=== PATIENT | female | born 1990 | race Caucasian/White ===

== ENCOUNTER 2019-10-28 03:00 | Inpatient (IN) | payer OTHER, SELFPAY ==
[2019-10-28] VITALS (77 sets, daily range): BP systolic 90–134; BP diastolic 52–87; PULSE 55–128; RESP 18; TEMP 36.3–37; O2SAT 94–100; BMI 37.5
[2019-10-28] MEDS: fentaNYL 100 MCG/2 ML Ampul 50 MCG IV (02:09)
[2019-10-28] MEDS: Lactated Ringers 500 ML 999 ML IV ×2 (03:15→03:55)
[2019-10-28 03:16] LABS: Absolute Lymphocyte Count 1.44 X10^3/uL (0.83-4.51); Absolute Neutrophil Count 9.7 X10^3/uL (2.0-7.7); Basophil# 0.03 X10^3/uL; Basophil% 0.3 % (0-1); Eosinophil# 0.05 X10^3/uL; Eosinophils% 0.4 % (0-5); Hematocrit 38.4 % (37-47); Hemoglobin 12.6 g/dL (12.0-15.0); Lymphocyte # 1.44 X10^3/ul (4.0); Lymphocyte % 12.2 % (19-41); Mean Corp Hgb Conc 32.8 g/dL (32-36); Mean Corpuscular Volume 91.4 fL (81-99); Mean Platelet Vol. 10.5 fl (6.2-12.0); Monocyte# 0.55 X10^3/uL; Monocyte% 4.7 % (0-10); NRBC Flagged by Analyzer 0 % (0-5); Neutrophil # 9.65 X10^3/uL (2.7-7.7); Neutrophil % 82.1 % (47-70); Platelet Count 171 K/mm3 (150-450); RBC Distribution Width CV 14.4 % (11.6-14.6); RBC Distribution Width SD 47.5 fl (35.1-43.9); White Blood Count 11.8 K/mm3 (4.4-11.0)
[2019-10-28] MEDS: Ondansetron 4 MG/2 ML Vial IV ×2 (03:29→11:22)
[2019-10-28] MEDS: fentaNYL-bupivacaine (epidural) 100 ML BAG EPIDURAL ×2 (04:26→09:41)
[2019-10-28] MEDS: Lactated Ringers 1,000 ML 50 ML IV (04:33)
--- NOTE | 2019-10-28 07:01 | PCM.HP.OB ---
- Problem List (1) 40 weeks gestation of Status: Acute (2) Obesity Status: Acute Qualifiers: Obesity classification: adult class 3 (BMI >= 40) (3) associated with use of clomiphene Status: Acute History Date of Admission: 10/28/19 Final DAMIAN: 10/25/19 Gestational age: 40 Weeks and 3 Days History of this : This is a 29 year-old, , at 40.4 weeks gestational age that presents in spontaneous labor. Allergies No Known Allergies Allergy (Verified 10/28/19 01:26) Home Medications: Home Medications Prenatabs FA 1 tab PO DAILY 10/28/19 Zofran Odt 1 tab PO BID PRN 10/28/19 Smoking Status: Never smoker Alcohol: None Number of Fetus(es): 1 NST - FHR Rate Baby A Baseline: 135 Variability:: Moderate Accelerations:: 15 x 15 Decelerations:: None NST Reactive:: Yes FHR Category:: Category I Uterine Activity:: Contractions palpate moderate and relaxed in between. TOCO not reading due to maternal size History Past Pregnancies: Past Pregnancies Delivery Date Name GA/ Weeks Outcome Route Wt Sex Labor Length Anesthesia Delivery Location Provider FOB Expected Infant Delivery Method: Spontaneous Vaginal Review of Systems Constitutional: Denies: Chills, Fever, Weight Change Eyes: Denies: Blurred vision Cardiovascular: Denies: Chest Pain Respiratory: Denies: Cough, Shortness of Breath Genitourinary: Denies: Dysuria Physical Exam Vitals: Vital Signs Temp Pulse BP Pulse Ox 97.4 F L 77 112/64 96 10/28/19 06:49 10/28/19 06:57 10/28/19 06:57 10/28/19 06:35 General: Alert, Oriented x3 Cardiovascular: Regular rate Lungs: Normal air movement Abdomen: Soft, Gravid, Obese Neurological: Cranial nerves II-XII grossly intact RETURNED CASE INSPECTOR: Normal external genitalia Estimated gestational size: Appropriate for gestational size Presentation: Cephalic Cervix Dilation (cm): 5 Station: -1 Effacement (%): 70 Assessment/Plan All Active Problems 40 weeks gestation of (Acute) Obesity (Acute) associated with use of clomiphene (Acute) This is a 29 year-old, at 40.4 weeks gestation in active labor -Admit to L&D -Monitor with EFM & TOCO -A.R.O.M -Epidural when indicated
--- NOTE | 2019-10-28 07:12 | PCM.PN.BLA ---
Progress Note Patient seen at bedside. Comfortable with epidural placement. Denies feeling any contractions. Discussed A.R.O.M the R/B/A to procedure. CE 80/-1, Cervix thin and stretchy. A/P Active labor A.R.O.M for large amount of clear/bloody fluid Continuous EFM/TOCO Anticipate STROKE Vital Signs/Narrative: Vital Signs Temp Pulse BP Pulse Ox 10/28/19 07:12 108/56 L 10/28/19 06:57 77 112/64 10/28/19 06:49 97.4 F L 10/28/19 06:35 58 L 96 10/28/19 06:30 77 97 10/28/19 06:26 58 L 110/58 L 10/28/19 06:25 62 97 10/28/19 06:20 63 97 10/28/19 06:15 72 96 10/28/19 06:13 65 113/61 10/28/19 06:10 95 96 10/28/19 06:05 79 97 10/28/19 06:00 76 95 10/28/19 05:56 72 112/64 10/28/19 05:55 66 96 10/28/19 05:50 90 96 10/28/19 05:48 62 94 10/28/19 05:45 77 96 10/28/19 05:42 62 94 10/28/19 05:41 101 H 104/62 10/28/19 05:40 95 10/28/19 05:35 59 L 95 10/28/19 05:30 61 96 10/28/19 05:28 60 94 10/28/19 05:26 93 114/61 10/28/19 05:25 89 96 10/28/19 05:20 59 L 96 10/28/19 05:15 56 L 96 10/28/19 05:11 86 118/68 10/28/19 05:10 64 98 10/28/19 05:05 94 97 10/28/19 05:00 94 97 10/28/19 04:55 90 97 10/28/19 04:53 62 114/71 10/28/19 04:50 78 98 10/28/19 04:49 62 111/57 L 10/28/19 04:45 90 120/61 99 10/28/19 04:40 55 L 105/57 L 99 10/28/19 04:39 55 L 90/52 L 10/28/19 04:35 99 10/28/19 04:30 89 114/61 99 10/28/19 04:29 106 H 108/59 L 10/28/19 04:25 128 H 98 10/28/19 04:24 116 H 109/62 10/28/19 04:20 123 H 97 10/28/19 04:18 94 132/71 H 10/28/19 04:15 73 99 10/28/19 04:14 77 112/71 10/28/19 04:09 81 134/75 H 100 10/28/19 04:03 65 110/56 L 10/28/19 03:47 97.8 F 55 L 115/62 10/28/19 03:46 99
[2019-10-28] MEDS: Oxytocin 30 units/NS 500 ml 30 UNITS/500 ML IV.SOLN IV (09:20)
[2019-10-28] MEDS: Lactated Ringers 1,000 ML 200 ML IV (09:26)
--- NOTE | 2019-10-28 11:15 | PCM.PN.BLA ---
Progress Note Patient comfortable with epidural anesthesia. EFM difficult to trace due to maternal size and positioning. TOCO reading contractions every 2-4 minutes and relaxed in between. A/P IFSE placed without difficulty CE- 8//0 Continue to titrate Pitocin Anticipate STROKE Vital Signs/Narrative: Vital Signs Temp Pulse BP Pulse Ox 10/28/19 10:16 97.8 F 78 96/54 L 100 10/28/19 09:28 98.0 F 68 110/59 L 97 10/28/19 08:05 98.0 F 86 97/53 L 97
[2019-10-28] MEDS: Mag Hydrox/Al Hydrox/Simeth 30 ML UDC PO (13:04)
[2019-10-28] MEDS: Oxytocin 30 units/NS 500 ml 30 UNITS/500 ML IV.SOLN 334 UNITS IV (14:54)
--- NOTE | 2019-10-28 15:39 | PCM.OPRPT ---
Problem List (1) 40 weeks gestation of Status: Resolved (2) Obesity Status: Acute Qualifiers: Obesity classification: adult class 3 (BMI >= 40) (3) associated with use of clomiphene Status: Acute Report of Operation Date of Procedure: 10/28/19 Pre-Operative Diagnosis: Term gestation, Spontaneous labor Post-Operative Diagnosis: Same, live female infant Vaginal Delivery Maternal Presentation: Active Labor Amniotic Membrane Rupture Type: - - Clear fluid Rupture of Membrane time: 648 Amniotic Fluid Description: Clear Final DAMIAN: 10/25/19 Gestational age: 40 Weeks and 3 Days Date of Procedure: 10/28/19 Pre-Operative Diagnosis: Spontaneous term labor Post-Operative Diagnosis: Same, live female Surgery/ Procedure Performed: Spontaneous Vaginal Delivery Type of Anesthesia: Epidural Description of Procedure: of live female infant born without complication. Head delivered without difficulty and body came quickly after over intact perineum. The infant placed on maternal abdomen for delay of cord clamping. vigorous. Placenta delivered without difficulty and was intact. Second-degree laceration was repaired using 3-0 rapide. Hemostasis present. Quick vaginal sweep was performed. Mother and bonding well. Presentation: Vertex, ROP Placental Delivery Description: Spontaneous Placenta Disposition: [facility] Cord Vessel Description: 3 Vessels Cord Entanglement: None Drain: Smith to straight drain Estimated Blood Loss: 350cc A gender: Female (1 minute): 9 (5 minute): 9 Episiotomy Description: None Laceration: 2nd degree Medications given after delivery: IV Pitocin
[2019-10-28] MEDS: Ibuprofen 600 MG Tablet PO (18:38)
[2019-10-29 00:08] VITALS: BP 98/52; PULSE 78; RESP 16; TEMP 36.7
[2019-10-29 04:00] VITALS: BP 120/64; PULSE 73; RESP 16; TEMP 36.7
[2019-10-29 08:03] VITALS: BP 116/69; PULSE 70; RESP 18; TEMP 36.4
[2019-10-29] MEDS: Senna/Docusate Sodium 1 Tablet PO (11:08)
[2019-10-29 12:00] VITALS: BP 105/61; PULSE 73; RESP 16; TEMP 36.6
[2019-10-29] MEDS: Acetaminophen 500 MG Tablet 1000 MG PO (12:11)
--- NOTE | 2019-10-29 12:48 | PCM.PN.OB ---
Patient Problems: Active and Suspected Problems Obesity (Acute) associated with use of clomiphene (Acute) Subjective: Doing well per patient and nursing staff. Ambulating and taking PO without difficulty. and doing well. Voiding and passing flatus. Pain controlled. Denies headache, visual changes, chest pain, SOB, leg pain or increased lochia. Would like discharge home today. - Physical Exam Vitals/I&O's: Vital Signs Temp Pulse Resp BP Pulse Ox 97.9 F 73 16 105/61 97 10/29/19 12:00 10/29/19 12:00 10/29/19 12:00 10/29/19 12:00 10/28/19 15:31 Oxygen Delivery Method Room Air Weight: 233 lb Body Mass Index (BMI) 37.5 Intake and Output for Last 24 Hours 10/27/19 10/28/19 10/29/19 23:59 23:59 23:59 Intake Total 3503.60 / 3503.60 Output Total 1700 / 1700 700 / 700 Balance 1803.60 / 1803.60 -700 / -700 General: Alert, Oriented x3, Cooperative HEENT: Atraumatic, Normocephalic Neck: Trachea Midline Lungs: Clear to auscultation, Normal air movement, No rhonchi, No wheeze Cardiovascular: Regular rate, Regular Rhythm, No murmurs Abdomen: Bowel Sounds Present, Soft, Non Tender - Fudus firm 2 below U Extremities: No edema Psych/Mental Status: Normal Affect, Appropriate Laboratory Results 10/28/19 16:40: Screen NEGATIVE, Baby's Blood Type O POSITIVE, Baby's SAMREEN NEGATIVE Current Medications Acetaminophen (Tylenol) 1,000 mg PO Q8H PRN PRN PRN Reason: Pain Score 1-3/10 Last Admin: 10/29/19 12:11 Dose: 1,000 mg Documented by: Bisacodyl (Dulcolax) 10 mg RECTAL UD PRN PRN Reason: If no BM Dibucaine (Dibucaine) 1 applic TOPICAL TID PRN PRN; Protocol PRN Reason: Discomfort Hydrocortisone (Hytone) 1 applic TOPICAL TID PRN PRN; Protocol PRN Reason: Discomfort Ibuprofen (Motrin) 600 mg PO Q6H PRN PRN PRN Reason: Pain Score 1-3/10 Last Admin: 10/28/19 18:38 Dose: 600 mg Documented by: Methylergonovine Maleate (Methergine) 0.2 mg IM X1 PRN PRN Reason: Excess bleeding/uterine atony Ondansetron HCl (Zofran) 4 mg IV Q4H PRN PRN PRN Reason: Nausea Senna/Docusate Sodium (Senokot-S, Milly-Colace) 1 - 2 tablet PO DAILY PRN PRN PRN Reason: Constipation Last Admin: 10/29/19 11:08 Dose: 2 tablet Documented by: Simethicone (Mylicon) 80 mg PO PCHS PRN PRN Reason: Indigestion/Stomach pain Sodium Chloride () 5 - 15 ml IV UD PRN PRN Reason: SALINE FLUSH Medical Necessity - Tobacco Use Smoking Status: Never smoker Assessment/Plan All Active Problems 40 weeks gestation of (Resolved) Obesity (Acute) associated with use of clomiphene (Acute) A:PPD #1 P: 1) Routine , , and discharge instructions. 2) Discharge home today 3) Will use OTC Tylenol and motrin for pain. 4) Reviewed COVID 19 instructions and to avoid contact with others and social distancing. 5) Follow up virtual visit in 2 weeks and 6 week visit.
--- NOTE | 2019-10-29 12:55 | DCINST_ITS ---
Discharge Diet: No Restrictions Discharge Activity: Return to Normal Activity, May not drive while taking narcotic pain medications., May Shower, May Take a Tub Bath May resume sexual activity in: 4-6 weeks Weight Bearing Status: Full weight bearing Additional Activity Instructions:: Nothing in the vagina for 4-6 weeks. You may return to work/school in 6 weeks. Call your doctor if your incision/area has: Continuous Slow Oozing, Sudden Increased Bleeding, Increased Pain/ Swelling, Increased Redness, Foul Smelling Discharge Call your doctor if you observe: Fever of 101 or Higher, Inability to urinate, Inability to have a bowel movement, Using more than one pad per hour, Shortness of breath, Dizziness, Chest pain, Increased palpitations (irregular heartbeat), Calf discomfort, Uncontrolled pain Additional Instructions: If you experience any of the following, contact your healthcare provider. * Bleeding that soaks a pad every hour for 2 hours * Fever 100.4 or higher * Unrelieved incision or abdominal pain * Swelling, redness, discharge or bleeding from your incision or episiotomy site * Your incision begins to separate * Problems urinating (including inability to urinate or burning while urinating). * Visual changes * Severe headache * Flu-like symptoms * Pain or redness in one of both of your breasts * Pain, warmth, tenderness or swelling in your legs, especially the calf area * Frequent nausea and vomiting * Symptoms of depression or anxiety If you experience any of the following, call 911 or go to the nearest Emergency Room. * Chest pain * Problems breathing * Seizure activity * Partial or complete paralysis of a body part, slurred speech, weakness or drooping of the face, or a sudden inability to walk or hold your balance Allergies/Adverse Reactions: Allergies No Known Allergies Allergy (Verified 10/28/19 01:26) Medications to take at Discharge Prenatabs FA 1 tab PO DAILY 10/28/19 Acetaminophen [Tylenol] 1,000 mg PO Q8H PRN PRN tab 10/29/19 Ibuprofen [Motrin] 600 mg PO Q6H PRN PRN tab 10/29/19 Please Follow Up With: Dannielle Mak CNM When: Call to make an appointment with your doctor in 2 weeks for virtual visit and 6 weeks for visit. Primary Care Physician: Devante Nesbitt MD [Primary Care Provider] - Test Results: Test results from this visit will be discussed in further detail at your follow- up appointment, if applicable.
[2019-10-29 16:00] VITALS: BP 110/67; PULSE 69; RESP 18; TEMP 36.6
== END 2019-10-29 18:00 | disposition home or self-care (01) | DRG 807 ==
LOC: WPOUT 03:00 → WP 03:00
PROVIDERS: Admitting Provider Advanced Practice Midwife; PCP Family Medicine; Visit Provider Advanced Practice Midwife
DX: O99.214 Obesity complicating childbirth (principal); O70.1 Second degree perineal laceration during delivery; Z37.0 Single live birth; E66.9 Obesity, unspecified; Z3A.40 40 weeks gestation of pregnancy
CPT/HCPCS: 59025; 59050; 85025; 85461; 86850; 86900; 86901; 90384; 99218; J7120; G0378; J2405; J2790

== ENCOUNTER 2021-06-10 03:20 | Inpatient (IN) | payer OTHER, SELFPAY ==
[2021-06-10] VITALS (48 sets, daily range): BP systolic 104–144; BP diastolic 50–85; PULSE 53–111; RESP 16–18; TEMP 36.2–36.8; O2SAT 86–100; BMI 41.9
[2021-06-10] MEDS: Lactated Ringers 1,000 ML 50 ML IV (03:40)
[2021-06-10] MEDS: Lactated Ringers 500 ML 999 ML IV (03:45)
[2021-06-10 04:22] LABS: Absolute Lymphocyte Count 1.95 X10^3/uL (0.83-4.51); Absolute Neutrophil Count 7.3 X10^3/uL (2.0-7.7); Basophil# 0.02 X10^3/uL; Basophil% 0.2 % (0-1); Eosinophil# 0.07 X10^3/uL; Eosinophils% 0.7 % (0-5); Hematocrit 35.3 % (37-47); Hemoglobin 11.5 g/dL (12.0-15.0); Lymphocyte # 1.95 X10^3/ul (0.83-4.51); Lymphocyte % 19.3 % (19-41); Mean Corp Hgb Conc 32.6 g/dL (32-36); Mean Corpuscular Volume 86.1 fL (81-99); Mean Platelet Vol. 11.8 fl (6.2-12.0); Monocyte# 0.76 X10^3/uL; Monocyte% 7.5 % (0-10); NRBC Flagged by Analyzer 0 % (0-5); Neutrophil # 7.26 X10^3/uL (2.7-7.7); Neutrophil % 71.7 % (47-70); Platelet Count 181 K/mm3 (150-450); RBC Distribution Width CV 14.6 % (11.6-14.6); RBC Distribution Width SD 45.2 fl (35.1-43.9); White Blood Count 10.1 K/mm3 (4.4-11.0)
[2021-06-10] MEDS: fentaNYL-bupivacaine (epidural) 100 ML BAG EPIDURAL (04:55)
--- NOTE | 2021-06-10 06:30 | PCM.HP.OB ---
HPI - General General Date of Admission: 06/10/21 HPI Narrative HILARIO LOCKHART, is a 31 F at 39.3 weeks gestation who presents in active labor. Patient started feeling contractions after membrane sweep in office yesterday. Denies loss of fluid or vaginal bleeding. Positive movement. Maternal Data Information DAMIAN Calculator Estimated Delivery Date Method Current WG Current Estimate 06/14/21 Manual 39w 3d PFSH PFSH Home Medications Prenatabs FA 1 tab PO DAILY 10/28/19 [History Last Taken 06/09/21 21:00] Allergy/AdvReac Type Severity Reaction Status Date / Time No Known Allergies Allergy Verified 06/10/21 03:32 Social History Smoking Status: Never smoker History Elective abortions Hx Para 1 Spontaneous abortions Hx # Term Pregnancies Ectopic pregnancies Hx # Pregnancies Multiple births # of living children NST FHR Rate Baby A Baseline: 125 Variability:: Moderate Accelerations:: 15 x 15 Decelerations:: None NST Reactive:: Yes FHR Category:: Category I Uterine Activity:: irregular ROS Eyes Eyes: Denies blurry vision, change in vision or spots in vision ENT HEENT: Denies dizziness or headache(s) Cardiovascular Cardiovascular: Denies abdominal pain, chest pain or dyspnea Respiratory/Chest Respiratory/Chest: Denies cough, dyspnea, shortness of breath at rest or shortness of breath with exertion Gastrointestinal Gastrointestinal: Denies abdominal pain, diarrhea or vomiting Genitourinary Genitourinary: Denies change in urinary stream, difficulty urinating or dysuria Musculoskeletal Musculoskeletal: Reports none Integumentary Integumentary: Denies rash Neurologic Neurologic: Denies dizziness, headache(s), memory loss or weakness Psychiatric Psychiatric: Reports none Vital Signs Vital Signs Vital Signs: 06/10/21 03:24 06/10/21 03:25 06/10/21 04:29 Temperature 97.2 F L Temperature Source Pulse Rate 75 67 Blood Pressure 137/84 H BP Systolic 137 BP Diastolic 84 Pulse Ox 93 100 06/10/21 04:34 06/10/21 04:39 06/10/21 04:42 Temperature Temperature Source Pulse Rate 75 65 67 Blood Pressure 136/70 H 129/71 H BP Systolic 136 129 BP Diastolic 70 71 Pulse Ox 99 98 86 06/10/21 04:44 06/10/21 04:49 06/10/21 04:55 Temperature Temperature Source Pulse Rate 65 78 80 Blood Pressure 135/84 H 131/85 H 136/65 H BP Systolic 135 131 136 BP Diastolic 84 85 65 Pulse Ox 98 98 100 06/10/21 04:58 06/10/21 05:00 06/10/21 05:05 Temperature 97.2 F L Temperature Source Temporal Pulse Rate 74 84 Blood Pressure 144/65 H 128/72 H BP Systolic 144 128 BP Diastolic 65 72 Pulse Ox 100 99 06/10/21 05:09 06/10/21 05:10 06/10/21 05:14 Temperature Temperature Source Pulse Rate 76 86 70 Blood Pressure 126/66 H 129/62 H BP Systolic 126 129 BP Diastolic 66 62 Pulse Ox 100 06/10/21 05:15 06/10/21 05:20 06/10/21 05:25 Temperature Temperature Source Pulse Rate 100 76 64 Blood Pressure 124/78 H 117/61 BP Systolic 124 117 BP Diastolic 78 61 Pulse Ox 100 100 100 06/10/21 05:30 06/10/21 05:31 06/10/21 05:35 Temperature Temperature Source Pulse Rate 65 67 Blood Pressure 117/63 135/73 H BP Systolic 117 135 BP Diastolic 63 73 Pulse Ox 100 100 06/10/21 05:40 06/10/21 05:44 06/10/21 05:45 Temperature Temperature Source Pulse Rate 67 82 80 Blood Pressure 131/67 H 134/74 H BP Systolic 131 134 BP Diastolic 67 74 Pulse Ox 100 100 06/10/21 05:50 06/10/21 05:54 06/10/21 05:55 Temperature Temperature Source Pulse Rate 86 99 71 Blood Pressure 130/74 H BP Systolic 130 BP Diastolic 74 Pulse Ox 100 100 06/10/21 06:00 06/10/21 06:05 06/10/21 06:10 Temperature Temperature Source Pulse Rate 70 71 93 Blood Pressure 128/63 H BP Systolic 128 BP Diastolic 63 Pulse Ox 100 100 100 06/10/21 06:15 06/10/21 06:20 Temperature Temperature Source Pulse Rate 111 H 65 Blood Pressure BP Systolic BP Diastolic Pulse Ox 100 98 Weight Weight: 244 lb 8 oz Body Mass Index (BMI) 41.9 Physical Exam Const alert, oriented x3 and no apparent distress General Appearance: cooperative Orientation / Consciousness: awake Exam Limitations: no limitations HEENT normocephalic Head and Scalp: normal to inspection Eyes General Eye: normal appearance of both eyes Neck full ROM and no lymphadenopathy Lymph Lymphatic: no lymphadenopathy noted Chest inspection of chest normal Resp normal respiratory effort, normal air movement and clear to auscultation bilaterally Effort and Inspection: able to speak in complete sentences and symmetric chest movement Cardio regular rate and regular rhythm GI normal to inspection, nondistended, normoactive bowel sounds Manual OB Exam: dilated 6, effaced 85 and station -1 Back/Spine normal ROM Extremity full ROM and no calf tenderness Skin no rashes or lesions noted General Skin Exam: no breakdown Neuro oriented x3 and CN's II-XII intact bilaterally Psych mental status grossly normal and thought process normal Labs Labs Labs: Blood Type A NEGATIVE Antibody Screen NEGATIVE Hct 35.3 % (37-47) L Hgb 11.5 g/dL (12.0-15.0) L Rhogam given: Yes Rubella immune HB- neg HC- neg HIV- NR RPR- GBS- neg Assessment & Plan (1) 39 weeks gestation of : (2) Spontaneous onset of labor: (3) Active labor at term: PLAN: Admit to labor and delivery IV fluids per orders GBS negative Cat 1 tracing - NST reactive Epidural when indicated Anticipate Dr. Thakkar notified of admission and is collaborating physician
[2021-06-10] MEDS: Mag Hydrox/Al Hydrox/Simeth 30 ML UDC PO (06:46)
--- NOTE | 2021-06-10 07:52 | PCM.PN.BLA ---
Progress Note Patient seen at bedside, resting comfortably with epidural in place. AROM performed 8.5/90/0 clear fluid. Anticipate .
[2021-06-10] MEDS: Oxytocin 30 units/NS 500 ml 30 UNITS/500 ML IV.SOLN 334 UNITS IV (08:33)
--- NOTE | 2021-06-10 08:48 | EX.PCM.OBRPT ---
Assessment & Plan (1) Vaginal delivery: Maternal Data Information DAMIAN Calculator Estimated Delivery Date Method Current WG Current Estimate 06/14/21 Manual 39w 3d Vaginal Delivery Maternal Presentation Maternal Presentation: Active Labor Maternal Presentation: 6cm on admission progressed to complete without augmentation. Operative Information Date of Procedure: 06/10/21 Pre-Operative Diagnosis: term gestation, obesity in Post-Operative Diagnosis: same, live female infant Surgery / Procedure Performed: Spontaneous Vaginal Delivery Type of Anesthesia: Epidural Drain: Smith to straight drain Estimated Blood Loss: 150 Time of Delivery: 08:30 Findings Description of Procedure: Patient progressed to fully dilated. With good maternal pushing efforts 's head was delivered without difficulty followed by the rest 's body. was vigorous at delivery and placed on the mother's chest for immediate skin to skin. Delayed cord clamping was performed. Cord was then clamped and cut. First-degree perineal laceration was repaired using 3-0 Rapide. Placenta did not deliver spontaneously manual evacuation was performed was adherent to the right cornua. After manual removal ultrasound performed in confirmed no retained products. Ancef 2 g to be given after manual evacuation. Presentation: Vertex Amniotic Membrane Rupture Type: Artificial Amniotic Fluid Description: Clear Placental Delivery Description: Manual Removal Placenta Disposition: [facility] Specimen(s) Removed: placenta Cord Vessel Description: 3 Vessels Cord Entanglement: None Infant A Gender: Female (1 minute): 9 (5 minute): 9 Delayed Cord Clamping: Yes Post Vaginal Delivery Medications Given After Delivery: IV Pitocin Episiotomy Description: None Laceration: Perineal Extension/lac and 1st degree Complication Complications: None Admit VTE Documentation VTE Present on Admission: No VTE Mechan Device Prophylaxis: None VTE Pharm Prophylaxis Ordered: No Reason Prophylaxis Not Ordered: Procedure Not Indicated
[2021-06-10] MEDS: Cefazolin 2 GM in 0.9% Normal Saline 100 ML IV (09:50)
[2021-06-10] MEDS: 0.9% Saline Lock 10 ML Syringe IV (11:18)
[2021-06-10] MEDS: Ibuprofen 600 MG Tablet PO (19:58)
[2021-06-11 01:03] VITALS: BP 120/75; PULSE 61; RESP 18; TEMP 36.4
[2021-06-11 04:00] VITALS: BP 117/65; PULSE 61; RESP 18; TEMP 36.2
[2021-06-11 08:43] VITALS: BP 130/63; PULSE 74; RESP 16; TEMP 36.1
--- NOTE | 2021-06-11 08:46 | PCM.PN.OB ---
Subjective Subjective Denies complaints Objective Data Objective Data Vital Signs: Vital Signs Temp Pulse Resp BP Pulse Ox 97.1 F L 61 18 117/65 98 06/11/21 04:00 06/11/21 04:00 06/11/21 04:00 06/11/21 04:00 06/10/21 08:59 Oxygen Delivery Method Room Air Weight: 244 lb 8 oz Body Mass Index (BMI) 41.9 Intake & Output: Intake and Output for Last 24 Hours 06/09/21 06/10/21 06/11/21 23:59 23:59 23:59 Intake Total 3596.67 / 3596.67 Output Total 2300 / 2300 Balance 1296.67 / 1296.67 Lab / Micro Data Result Diagrams: 06/10/21 03:40 Labs: Laboratory Results - last 24 hr 06/10/21 11:40: Screen NEGATIVE, Baby's Blood Type A POSITIVE, Baby's SAMREEN NEGATIVE Micro: Microbiology 06/10/21 03:55 Nasal Secretion SARS-CoV-2 Antigen (Rapid) - Final Physical Exam Const alert, oriented x3 and no apparent distress HEENT normocephalic GI soft to palpation, non-tender and non-distended GI Narrative: fundus firm, mid & below umbilicus Extremity normal to inspection and no calf tenderness Assessment & Plan (1) Vaginal delivery: COMMENT: PPD#1 PLAN: D/c home
--- NOTE | 2021-06-11 08:47 | PCM.DC ---
Discharge Instructions Diet Discharge Diet: No restrictions Activity Discharge Activity: May Shower May resume sexual activity in: 6 weeks Weight Bearing Status: Weight bearing as tolerated Dressing / Incision Call your doctor if you observe: Fever of 101 or Higher, Coldness, Increased Pain, Change in Color, Inability to urinate, Inability to have a bowel movement, Using more than 1 pad per hour, Shortness of breath, Dizziness, Fainting spells, Chest pain, Increased palpitations (irregular heartbeat), Calf discomfort and Uncontrolled pain Follow Up Care Please Follow Up With: Elle Rodriguez MD When: Follow up in 2 and 6 weeks for visits. Test Results: Test results from this visit will be discussed in further detail at your follow-up appointment, if applicable. Discharge Plan Admission Admit Date/Time: 06/10/21 03:20 Primary Reason for Your Visit: Vaginal delivery Attending Provider: Elle Rodriguez Primary Care Provider: Devante Nesbitt Discharge Orders/Prescriptions Prescriptions: New acetaminophen 500 mg Tablet 1,000 mg PO Q6H PRN PRN (Reason: Pain 1-10 Or Fever) Qty: 0 RF: 0 ibuprofen 600 mg Tablet 600 mg PO Q6H PRN PRN (Reason: Pain Score 1-3) Qty: 0 RF: 0 Continued Prenatabs FA 1 tab PO DAILY RF: 0 Referrals / Follow Up: Devante Nesbitt MD [Primary Care Provider] - Disposition Disposition (needs filled in before D/C Order can be placed): Home, Self Care
== END 2021-06-11 10:20 | disposition home or self-care (01) | DRG 807 ==
LOC: WPOUT 03:22 → WP 03:22
PROVIDERS: Advanced Practice Midwife; Admitting Provider Obstetrics & Gynecology; PCP Family Medicine; Referring Provider Obstetrics & Gynecology; Visit Provider Obstetrics & Gynecology
DX: O70.0 First degree perineal laceration during delivery (principal); Z37.0 Single live birth; O99.214 Obesity complicating childbirth; E66.9 Obesity, unspecified; Z3A.39 39 weeks gestation of pregnancy
CPT/HCPCS: 59025; 59050; 76815; 85025; 85461; 86850; 86900; 86901; 87426; 90384; 99218; J7120; A4216; G0378; J2790

== ENCOUNTER → 2021-07-02 08:59 | Outpatient (CLI) | payer OTHER, SELFPAY | PROVIDERS: PCP Family Medicine; Referring Provider Obstetrics & Gynecology; Visit Provider Obstetrics & Gynecology | DX: Z39.1 Encounter for care and examination of lactating mother (principal) | CPT/HCPCS: 96158 ==

== ENCOUNTER 2021-12-15 18:22 | Emergency (ER) | payer OTHER, SELFPAY ==
[2021-12-15] VITALS (10 sets, daily range): BP systolic 109–144; BP diastolic 61–84; PULSE 63–91; RESP 16–20; TEMP 36.5–36.8; O2SAT 96–100; BMI 38.2
--- NOTE | 2021-12-15 18:26 | RAD_ITS ---
STUDY: X-RAY - LEFT ELBOW REASON FOR EXAM: Female, 31 years old. pt states severe left elbow pain after fall today, pt unable to supinate left hand or flex left elbow TECHNIQUE: 3 view(s) of the elbow. COMPARISON: None. FINDINGS: Dislocation elbow involving the ulnotrochlear and radiocapitellar joints. Radial head fracture with displacement. The visualized humerus is intact. Diffuse soft tissue swelling. RAD/Elbow 2 Views IMPRESSION: Elbow dislocation with displaced fracture of radial head. Electronically Signed: Drew Mar MD ([place]) at 19:38 EDT ,
--- NOTE | 2021-12-15 18:27 | EDS_ITS ---
HPI History of Present Illness Chief Complaint: Fall Informant: patient and EMS Narrative Narrative: Patient is playing on a playground when she apparently tripped she is not sure how she landed but she notes pain in her right knee and left elbow. She received morphine for EMS and the elbow was splinted with an air splint. PFSH PFSH Allergy/AdvReac Type Severity Reaction Status Date / Time No Known Allergies Allergy Verified 07/05/21 09:58 Social History (Updated 12/15/21 @ 18:[address] Mark Hitchcock, DO) Smoking Status: Never smoker substance use type: does not use ROS ROS ED Constitutional Constitutional ED: Denies chills, fever(s) or weight loss Eyes Eyes: Denies change in vision or diplopia ENT ENT ED: Denies ear pain, rhinorrhea or sore throat Cardiovascular Cardiovascular: Denies chest pain, orthopnea, palpitations or racing heartbeat Respiratory/Chest Respiratory/Chest: Denies cough, dyspnea or orthopnea Gastrointestinal Gastrointestinal: Denies abdominal pain, diarrhea, nausea or vomiting Genitourinary Genitourinary ED: Denies dysuria, hematuria or urinary frequency Musculoskeletal Musculoskeletal: Reports other Details: See HPI ; Denies arthralgias or myalgias Integumentary Denies abscess or rash Neurologic Neurologic: Denies headache(s) or weakness Psychiatric Psychiatric: Denies anxiety, depression, suicidal ideation or suicidal thoughts Endocrine Endocrinology: Denies polydipsia, polyphagia or polyuria Allergic/Immunologic Allergic/Immunologic ED: Denies mouth swelling, tongue swelling or urticaria EXAM Physical Exam Const Vital Signs: 12/15/21 18:23 12/15/21 20:01 12/15/21 20:03 Temperature 97.7 F L 97.9 F Temperature Source Oral Pulse Rate 63 86 Pulse Rate [1 (Initial Baseline)] 71 Pulse Rate [2] 91 Pulse Rate [3] 79 Respiratory Rate 20 H 16 Respiratory Rate [1 (Initial Baseline)] 17 Respiratory Rate [2] 17 Respiratory Rate [3] 17 Blood Pressure 144/84 H 140/63 H Blood Pressure [1 (Initial Baseline)] 139/78 H Blood Pressure [2] 113/69 Blood Pressure [3] 109/61 Blood Pressure Mean 104 Pulse Ox 100 96 Oxygen Delivery Method Room Air Nasal Cannula Oxygen Delivery Method [1 (Initial Baseline)] Nasal Cannula Oxygen Delivery Method [2] Nasal Cannula Oxygen Delivery Method [3] Nasal Cannula Oxygen Flow Rate (L/min) 2 Oxygen Flow Rate (L/min) [1 (Initial Baseline)] 2 Oxygen Flow Rate (L/min) [2] 2 Oxygen Flow Rate (L/min) [3] 2 12/15/21 20:15 12/15/21 20:19 12/15/21 20:24 Temperature Temperature Source Pulse Rate 77 68 Pulse Rate [1 (Initial Baseline)] Pulse Rate [2] Pulse Rate [3] Respiratory Rate 17 19 H Respiratory Rate [1 (Initial Baseline)] Respiratory Rate [2] Respiratory Rate [3] Blood Pressure 111/70 124/73 H Blood Pressure [1 (Initial Baseline)] Blood Pressure [2] Blood Pressure [3] Blood Pressure Mean Pulse Ox 99 99 Oxygen Delivery Method Nasal Cannula Room Air Room Air Oxygen Delivery Method [1 (Initial Baseline)] Oxygen Delivery Method [2] Oxygen Delivery Method [3] Oxygen Flow Rate (L/min) 2 Oxygen Flow Rate (L/min) [1 (Initial Baseline)] Oxygen Flow Rate (L/min) [2] Oxygen Flow Rate (L/min) [3] 12/15/21 20:25 12/15/21 20:29 12/15/21 21:47 Temperature Temperature Source Pulse Rate 73 75 Pulse Rate [1 (Initial Baseline)] Pulse Rate [2] Pulse Rate [3] Respiratory Rate 17 19 H 16 Respiratory Rate [1 (Initial Baseline)] Respiratory Rate [2] Respiratory Rate [3] Blood Pressure 124/73 H 111/75 Blood Pressure [1 (Initial Baseline)] Blood Pressure [2] Blood Pressure [3] Blood Pressure Mean 87 Pulse Ox 100 99 Oxygen Delivery Method Room Air Room Air Oxygen Delivery Method [1 (Initial Baseline)] Oxygen Delivery Method [2] Oxygen Delivery Method [3] Oxygen Flow Rate (L/min) Oxygen Flow Rate (L/min) [1 (Initial Baseline)] Oxygen Flow Rate (L/min) [2] Oxygen Flow Rate (L/min) [3] Positive well nourished and well developed General Appearance ED: well developed HEENT Reports normocephalic, head/scalp atraumatic, TM's clear and moist mucous membranes atraumatic Tympanic Membrane ED: Yes TM's clear Eyes PERRL and EOMs intact bilaterally Neck no lymphadenopathy, supple and no JVD Resp normal respiratory effort and clear to auscultation bilaterally Cardio regular rate, regular rhythm and no murmurs GI normal to inspection, nondistended, normoactive bowel sounds and non-tender Palpation: soft Back/Spine no CVA tenderness and normal ROM Extremity Extremity Narrative: There are no obvious deformities. Neurovascularly intact. General Extremety ED: Negative for edema General Extremity: Negative for edema Neuro oriented x3 and CN's II-XII intact bilaterally Sensorium / Orientation: alert Motor Exam: strength 5/5 throughout Psych mental status grossly normal Mood & Affect: Negative for depressed or tearful Skin no rashes or lesions noted and no wounds MDM MDM MDM Narrative Medical decision making narrative: My interpretation of the plain films of the right elbow is fracture dislocation. My impression of the knee films is a nondisplaced fibular head fracture and a medial tibial plateau fracture. Patient provided informed consent for the use of procedural sedation for reduction of the left elbow. Patient received propofol bolus of 100 mg followed by second bolus to keep the the patient sedated to complete the procedure. The elbow was easily reduced and placed in a posterior Ortho-Glass splint. Neurovascular intact pre and post application. Patient was allowed to recover without any incident. A CT of the knee was obtained which demonstrates tibial plateau fracture possibly ACL injury and fibular head fracture with possible ligamentous injury. Patient was placed in a knee immobilizer. Pain has been controlled using Dilaudid and Toradol. Case was discussed with on-call orthopedic surgeon Dr. Saunders. After reviewing the films he is recommending transfer to trauma center out of concern for possible knee dislocation. Case was discussed with [facility] and their emergency and orthopedic surgeons. She has been accepted by Dr. Hung. Family and the patient have been kept up-to-date. Radiography Diagnostic Testing: Clinical Impression(s) from Imaging Studies Elbow X-Ray 12/15/21 18:26 IMPRESSION: Elbow dislocation with displaced fracture of radial head. Electronically Signed: Drew Mar MD ([place]) at 19:38 EDT , Knee X-Ray 12/15/21 19:00 IMPRESSION: 1. Medial tibial plateau fracture with hemarthrosis. 2. Nondisplaced fibular head fracture. Electronically Signed: Drew Mar MD ([place]) at 19:36 EDT , Lower Extremity CT 12/15/21 20:40 IMPRESSION: 1. Mildly depressed impaction fracture of the medial tibial plateau. 2. Small bony fragment is seen along the anterior midline tibia; possible ACL injury. 3. Fibular head fracture with lateral ligamental thickening; possible ligamental injury. RECOMMENDATIONS: Knee MRI recommended to further characterize ligamental injury. Electronically Signed: Drew Mar MD ([place]) at 21:01 EDT , Elbow X-Ray 12/15/21 20:54 IMPRESSION: Reduction of elbow dislocation. Radial head fracture. Electronically Signed: Drew Mar MD ([place]) at 21:24 EDT , Discharge Plan Triage Chief Complaint: Fall ED Provider: Mark Hitchcock Dx/Rx/DC Orders Clinical Impression: Left elbow fracture, Dislocation of left elbow, Closed fracture of head of right fibula, Closed fracture of tibial plateau Primary Care Provider: Devante Nesbitt Referrals: Devante Nesbitt MD [Primary Care Provider] - Disposition Disposition: Acute Care Hospital Discharge Location: [facility]
[2021-12-15] MEDS: Ketorolac 30 MG/ML Syringe IV (18:35)
--- NOTE | 2021-12-15 19:00 | RAD_ITS ---
STUDY: X-RAY - RIGHT KNEE REASON FOR EXAM: Female, 31 years old. severe right knee pain after fall today TECHNIQUE: 3 view(s) of the knee. COMPARISON: None. FINDINGS: Normal visualized distal femur. Irregularity of the medial tibial plateau involving the anterior surface, best seen on lateral view. Nondisplaced fracture of the fibular head. Normal medial femorotibial compartment. Normal lateral femorotibial compartment. Normal patellofemoral articulation. Small lipohemarthrosis. The soft tissue structures are unremarkable. RAD/Knee 3 Views IMPRESSION: 1. Medial tibial plateau fracture with hemarthrosis. 2. Nondisplaced fibular head fracture. Electronically Signed: Drew Mar MD ([place]) at 19:36 EDT Reading Location ID and State: [facility] / [place] , Service support ,
[2021-12-15] MEDS: HYDROmorphone 1 MG/ML Syringe IV (19:34)
[2021-12-15] MEDS: Ondansetron 4 MG/2 ML Vial IV (19:35)
[2021-12-15] MEDS: Propofol 200 MG/20 ML Vial IV BOLUS (19:37)
--- NOTE | 2021-12-15 20:40 | CT_ITS ---
EXAM: CT RIGHT LOWER EXTREMITY WITHOUT INTRAVENOUS CONTRAST CLINICAL INDICATION: knee trauma TECHNIQUE: Helically acquired images were obtained of the right lower extremity without intravenous contrast. 2-D reformats were performed by the technologist. This CT exam was performed using one or more of the following dose reduction techniques: automated exposure control, adjustment of the mA and/or kV according to patient size, and/or use of iterative reconstruction technique. This report was created using [employer] report generation technology. RADIATION DOSE: CTDIvol = 15.35 mGy, DLP = 480.41 mGy-cm COMPARISON: None. FINDINGS: BONES/JOINTS: Mildly depressed impaction fracture of the medial tibial plateau. Small bony fragment is seen along the anterior midline tibia; possible ACL injury. Small lipohemarthrosis. Small triangular fragment along the medial margin of the tibial plateau. Right fibular head fracture with approximately 6 mm of separation. Mildly impacted medial tibial plateau fracture. Lipohemarthrosis. SOFT TISSUES: Soft tissue swelling of the lateral of the knee with thickening of the lateral ligament complex. No radiopaque foreign body. CT/Extremity Lower without Contra IMPRESSION: 1. Mildly depressed impaction fracture of the medial tibial plateau. 2. Small bony fragment is seen along the anterior midline tibia; possible ACL injury. 3. Fibular head fracture with lateral ligamental thickening; possible ligamental injury. RECOMMENDATIONS: Knee MRI recommended to further characterize ligamental injury. Electronically Signed: Drew Mar MD ([place]oks) at 21:01 EDT Reading Location ID and State: [facility] / [place] , Service support ,
--- NOTE | 2021-12-15 20:54 | RAD_ITS ---
STUDY: X-RAY - LEFT ELBOW REASON FOR EXAM: Female, 31 years old. Reduction TECHNIQUE: 3 view(s) of the elbow. COMPARISON: Earlier today FINDINGS: Radial head fractures redemonstrated. Reduction of radial capitellar and ulnar trochlear dislocation with gross radiographic alignment now evident. There is soft tissue swelling with joint effusion. RAD/Elbow min 3 Views IMPRESSION: Reduction of elbow dislocation. Radial head fracture. Electronically Signed: Drew Mar MD ([place]) at 21:24 EDT ,
--- NOTE | 2021-12-15 21:42 | NURSING ---
CALLED [facility] FOR KNEE IMMOBOLIZER OBLY HAVE 12 INCH ON FLOOR AT THIS TIME
--- NOTE | 2021-12-15 22:17 | ED.RN ---
REPORT GIVEN TO TROY COON
== END 2021-12-15 22:31 | disposition short-term general hospital (02) ==
PROVIDERS: Emergency Provider Emergency Medicine; PCP Family Medicine; Visit Provider Emergency Medicine
DX: S82.143A Displaced bicondylar fracture of unspecified tibia, initial encounter for closed fracture (principal); S82.401A Unspecified fracture of shaft of right fibula, initial encounter for closed fracture; W01.0XXA Fall on same level from slipping, tripping and stumbling without subsequent striking against object, initial encounter; Y92.9 Unspecified place or not applicable
CPT/HCPCS: 24600; 29125; 29515; 73070; 73080; 73562; 73700; 96374; 96375; 99152; 99285; J7030; A4216; J2405

== ENCOUNTER 2021-12-19 20:15 | Inpatient (IN) | payer OTHER, SELFPAY ==
[2021-12-19 20:30] VITALS: BP 122/69; PULSE 99; RESP 18; TEMP 36.3; O2SAT 100; BMI 34.8
[2021-12-19 22:00] VITALS: BP 124/70; PULSE 112; RESP 16; TEMP 36.5; O2SAT 99
[2021-12-19] MEDS: oxyCODONE 5 MG Tablet PO (22:28)
[2021-12-19] MEDS: Acetaminophen 500 MG Tablet 1000 MG PO (22:29)
[2021-12-19] MEDS: Senna/Docusate Sodium 1 Tablet 2 TABLET PO (22:30)
[2021-12-20] MEDS: Menthol/Lanolin/Calamine/Znox 113 GM Tube 1 APPLIC TOPICAL ×2 (00:29→10:06)
--- NOTE | 2021-12-20 03:12 | NURSING ---
2030: Pt admitted from [facility] via squad. Pt orientated to room, bed controls, call light. at bedside visiting at this time.
[2021-12-20] MEDS: Acetaminophen 500 MG Tablet 1000 MG PO ×3 (05:50→21:29)
[2021-12-20] MEDS: oxyCODONE 5 MG Tablet PO ×4 (07:03→21:30)
[2021-12-20 07:20] LABS: Hematocrit 34.9 % (37-47); Hemoglobin 11.3 g/dL (12.0-15.0); Mean Corp Hgb Conc 32.4 g/dL (32-36); Mean Corpuscular Volume 92.6 fL (81-99); Mean Platelet Vol. 9.6 fl (6.2-12.0); Platelet Count 237 K/mm3 (150-450); RBC Distribution Width CV 13.7 % (11.6-14.6); RBC Distribution Width SD 47.1 fl (35.1-43.9); Red Blood Count 3.77 M/mm3 (4.2-5.4); White Blood Count 5.2 K/mm3 (4.4-11.0)
[2021-12-20 08:00] VITALS: BP 116/71; PULSE 88; RESP 18; TEMP 36.6; O2SAT 100
[2021-12-20 08:16] LABS: ALB/GLOB Ratio 0.6 RATIO (0.9-2.4); AST(SGOT) 17 U/L (15-37); Alanine Aminotransfer ALT/SGPT 16 U/L (13-56); Albumin, Serum 2.4 g/dL (3.2-5.0); Alkaline Phosphatase 76 U/L (45-117); Anion Gap 7 (5-15); BUN 15 mg/dL (7-18); BUN/Creat Ratio 20.1 RATIO (10-20); Calcium,Total 8.6 mg/dL (8.5-10.1); Chloride 104 mmol/L (98-107); Creatinine, Serum 0.74 mg/dL (0.55-1.02); EST Glomerular Filtration Rate 97 mL/min (>60); Est Glom Filt Rate - Afr Amer 117 mL/min (>60); Estimated Creatinine Clearance 100.03 ml/min; Globulin 4.3 g/dL (2.2-4.2); Glucose 98 mg/dL (74-106); Magnesium 2.1 mg/dL (1.6-2.6); Potassium 3.3 mmol/L (3.5-5.1); Protein, Total 6.7 g/dL (6.4-8.2); Sodium Level 137 mmol/L (136-145)
[2021-12-20 08:45] LABS: Phosphorus 3.2 mg/dL (2.5-4.9)
[2021-12-20 09:27] LABS: Bacteria 0 SEEN /hpf (None Seen)
[2021-12-20 09:33] LABS: Color, Urine Yellow (Yellow); Glucose, Dipstick Normal (Normal); Ketone-Dipstick 5 mg/dl (Negative); Leukocyte Esterase-Dipstick 25 /ul (Negative); Nitrite-Dipstick Negative (Negative); Occult Blood-Urine 10 /ul (Negative); Protein-Dipstick 30 mg/dl (Negative); Specific Gravity, Urine 1.015 (1.002-1.030); Urine Clarity Sl. Cloudy (Clear); Urine Urobilinogen 4 mg/dl (Normal)
[2021-12-20 09:40] LABS: Urine Bilirubin Dipstick 1 mg/dL (Negative)
[2021-12-20 09:41] LABS: Mucous, Urine 1+ /hpf (<or=2+); Red Blood Cells-Urine 0-5 SEEN /hpf (0-5); Squamous Epithelial Cells - UA 0-5 SEEN /hpf (5-10); White Blood Cells 0-5 SEEN /hpf (0-5)
[2021-12-20] MEDS: Senna/Docusate Sodium 1 Tablet 2 TABLET PO ×2 (10:02→21:30)
[2021-12-20] MEDS: Enoxaparin 40 MG/0.4 ML Syringe SC (10:03)
[2021-12-20] MEDS: Prenatal Vits Tablet 1 TABLET PO (10:03)
[2021-12-20] MEDS: Potassium Chloride Oral Tablet 20 MEQ PO (16:23)
[2021-12-20 19:00] VITALS: BP 152/90; PULSE 70; RESP 17; TEMP 36.1; O2SAT 96
[2021-12-20] MEDS: Hydrocortisone 2.5% Crm 1 APPLIC TOPICAL (21:31)
[2021-12-21] MEDS: Acetaminophen 500 MG Tablet 1000 MG PO ×3 (05:25→21:01)
[2021-12-21] MEDS: oxyCODONE 5 MG Tablet PO ×3 (05:25→22:14)
[2021-12-21 07:41] VITALS: BP 123/72; PULSE 91; RESP 16; TEMP 36.6; O2SAT 100
[2021-12-21] MEDS: Enoxaparin 40 MG/0.4 ML Syringe SC (09:19)
[2021-12-21] MEDS: Senna/Docusate Sodium 1 Tablet 2 TABLET PO ×2 (09:20→21:01)
[2021-12-21] MEDS: Prenatal Vits Tablet 1 TABLET PO (09:20)
[2021-12-21] MEDS: Menthol/Lanolin/Calamine/Znox 113 GM Tube 1 APPLIC TOPICAL ×2 (09:30→21:03)
--- NOTE | 2021-12-21 10:36 | PCM.HP.STD ---
HPI - General General Date of Admission: 12/19/21 HPI Narrative HILARIO LOCKHART, is a 31 F who tripped and fell while at the playground with her children and her . She was taken to [facility] and was diagnosed with a R medial tibial plateau fx and L elbow fracture/dislocation. She underwent surgery by Dr. Musa and PT/OT was ordered. since she will be NWB on the RLE for 8-10 weeks and NWB on the LUE for 4-6 weeks acute rehab was recommended. She was transferred to the acute inpt rehab unit at [facility] on 12/19/21 for 3 hours of therapy daily to improve function to allow her to maneuver in her house safely. Her can be home but they have a 2 YO and a 6 month old and he will have his hands full. There are many family members in the area that can pitch in and help. She is sleeping well. Tells me that her pain is adequately controlled. She is somewhat constipated but realizes that she is now on stool softeners and she does not want an enema at this time but will let me know if she has abdominal cramping, nausea or abdominal pain. She denies dysuria. She has no history of VTE. She was on BCP's when she came to us but, these have been discontinued and I explained why. She is in agreement. She is a non-smoker. She has 1 uncle who had a PE and but, she does not know of any FH of VTE or inherited clotting disorders. [facility] Medical History (Updated 12/21/21 @ 15:[address] Bessy Cullen DO) NIK I (cervical intraepithelial neoplasia I) Spontaneous Home Medications Lovenox DAILY 12/19/21 [History Last Taken Unknown] Gummies DAILY 12/19/21 [History Last Taken Unknown] Tylenol Q8 12/19/21 [History Last Taken Unknown] oxycodone 5 mg PO Q4H PRN 12/19/21 [History Last Taken Unknown] Allergy/AdvReac Type Severity Reaction Status Date / Time No Known Allergies Allergy Verified 07/05/21 09:58 Family History Brother Diabetes Kidney disease Marfans syndrome Grandmother Cancer melanoma Dementia Grandfather Myocardial infarction Sister Marfans syndrome half sister Surgical History (Updated 12/21/21 @ 15:[address] Bessy Cullen DO) H/O oral surgery History of colposcopy with cervical biopsy Social History Smoking Status: Never smoker substance use type: does not use ROS Constitutional Constitutional: Denies anorexia, change in weight, chills, fatigue, fever(s), night sweats or weakness Eyes Eyes: Denies blurry vision, change in vision, eye pain or loss of vision ENT HEENT: Denies abnormal hearing, dysphagia, headache(s), hearing loss, nasal congestion or sore throat Cardiovascular Cardiovascular: Reports edema; Denies chest pain, dyspnea on exertion, lightheadedness, orthopnea, palpitations, paroxysmal nocturnal dyspnea, syncope or tachypnea Respiratory/Chest Respiratory/Chest: Denies cough, dyspnea, restlessness, shortness of breath at rest, shortness of breath with exertion or wheezing Gastrointestinal Gastrointestinal: Reports constipation and other Details: Has had only 1 BM since being admitted to the hospital but, does not want a laxative. No cramping and no N. ; Denies abdominal pain, diarrhea, dyspepsia, hematemesis, hematochezia, nausea or vomiting Genitourinary Genitourinary: Denies dysuria, hematuria, nocturia, urinary frequency, urinary hesitancy, urinary incontinence or urinary urgency Musculoskeletal Musculoskeletal: Reports difficulty walking, extremity pain and limited range of motion; Denies back pain, joint pain, joint swelling, muscle cramps, muscle spasms or neck pain Integumentary Integumentary: Reports systems reviewed and no addt'l complaints, except as documented Neurologic Neurologic: Denies confusion, disequilibrium, dizziness, focal weakness, headache(s), paresthesias, seizures or tremor(s) Psychiatric Psychiatric: Denies anxiety, depression, homicidal ideation or suicidal ideation Endocrine Endocrinology: Denies change in body appearance, polydipsia or polyuria Hematologic/Lymphatic Hematologic/Lymphatic: Denies easy bleeding, easy bruising or lymphadenopathy Allergic/Immunologic Allergic/Immunologic: Denies rhinitis, eczemia or asthma Vital Signs Vital Signs Vital Signs: 12/20/21 15:39 12/20/21 19:00 12/21/21 07:41 Temperature 97 F L 97.8 F Temperature Source Temporal Oral Pulse Rate 70 91 Respiratory Rate 17 16 Blood Pressure 152/90 H 123/72 H Blood Pressure Mean 110 89 Blood Pressure Source Monitor Monitor Blood Pressure Position Sitting Semi-Fowlers Blood Pressure Location Right Arm Right Arm Pulse Ox 96 100 Oxygen Delivery Method Room Air Room Air Room Air Weight Weight: 209 lb 7.026 oz Body Mass Index (BMI) 34.8 Physical Exam Const alert, oriented x3 and no apparent distress Constitutional Narrative: Lying in bed with the R Leg and the left arm elevated. She has a cast on the L arm. She has a knee immobilizer to use when she is up and out of bed. General Appearance: cooperative, comfortable, well kempt and well developed HEENT normocephalic HEENT Narrative: MM are a little dry however this may be due to the Oxycodone. Head and Scalp: normal to inspection and atraumatic Eyes PERRL, EOMs intact bilaterally, conjunctivae normal and no scleral icterus Neck full ROM, supple, no JVD, thyroid normal, No nodes and no carotid bruits Chest Chest: symmetrical chest wall rise Resp normal respiratory effort, normal air movement and clear to auscultation bilaterally Effort and Inspection: able to speak in complete sentences Cardio regular rate, regular rhythm, S1 normal heart sound, S2 normal heart sound, no murmurs, no rub and no gallops Cardio Narrative: no ectopy GI normal to inspection, nondistended, normoactive bowel sounds, soft to palpation and non-tender GI Narrative: no guarding with palpation Extremity normal capillary refill Extremity Narrative: She has calf pain on the R and the ankle and pretibial area are swollen. Intact sensation to the fingers on the L hand and the R toes. The fingers and toes are not cyanotic and are warm to touch. Peripheral Pulses: Yes radial pulses present right (not palpable due to the cast.) and left (2 +), posterior tibial pulses present and dorsalis pedis pulses present Skin Rashes: no rashes Neuro oriented x3, CN's II-XII intact bilaterally, moves all extremities, no focal motor deficits and no sensory deficits noted Psych mental status grossly normal, thought process normal, cooperative, affect normal and speech normal Activity / Motor Behavior: appropriate eye contact Mood & Affect: euthymic mood Results Lab / Micro Data Result Diagrams: 12/20/21 07:08 12/20/21 07:08 Assessment & Plan Assessment/Plan (1) Physical debility: (2) Dislocation of left elbow: QUALIFIERS: Encounter type: subsequent encounter Qualified Code(s): S53.105D - Unspecified dislocation of left ulnohumeral joint, subsequent encounter (3) Left elbow fracture: QUALIFIERS: Encounter type: subsequent encounter Fracture type: closed Fracture healing: with routine healing Qualified Code(s): S42.402D - Unspecified fracture of lower end of left humerus, subsequent encounter for fracture with routine healing (4) Closed fracture of head of right fibula: QUALIFIERS: Encounter type: subsequent encounter Fracture healing: with routine healing Qualified Code(s): S82.831D - Other fracture of upper and lower end of right fibula, subsequent encounter for closed fracture with routine healing (5) Closed fracture of tibial plateau: QUALIFIERS: Encounter type: subsequent encounter Laterality: right Fracture healing: with routine healing Qualified Code(s): S82.141D - Displaced bicondylar fracture of right tibia, subsequent encounter for closed fracture with routine healing (6) Hypokalemia: (7) Normochromic normocytic anemia: (8) Obesity: QUALIFIERS: Obesity classification: adult class 1 (BMI 30 - 34.9) Obesity type: due to excess calories Serious obesity comorbidity presence: without serious comorbidity Body mass index: BMI 34.0-34.9 Qualified Code(s): E66.09 - Other obesity due to excess calories; Z68.34 - Body mass index [BMI] 34.0-34.9, adult (9) Constipation: QUALIFIERS: Constipation type: drug induced constipation Qualified Code(s): K59.03 - Drug induced constipation PLAN: PLAN PT for gait stability OT for ADL's Analgesics as needed Bowel protocol Fall precautions Assess for Anxiety/Depression GI prophylaxis - not necessary at this time/symptomatic DVT prophylaxis with Lovenox 40 mg subcu daily. Follow up with Dr. Musa following DC from IP Rehab AM lab including CMP, CBC, Mag and Phos - reviewed DC BCP's - due to increased risk for VTE due to immobility. Pt informed that she will need to use a condom for sexual intercourse until she is mobile/ambulatory again. Supplement the potassium NWB on the LUE and the RLE venous US of the RLE for calf pain and swelling of the R leg distal to the knee and including the ankle Unit Exclusion This patient is an acute care inpatient being housed in the excluded unit because of capacity issues related to the disaster or emergency.: Yes Charges/Coding Visit Charges Inpatient E&M: 28730 Init Hosp L2
--- NOTE | 2021-12-21 10:37 | REHABEVAL_ITS ---
Admission Information Primary Diagnosis:: Debility due to fracture of the Left elbow and the R tibial plateau and the R fibula with NWB on the RLE and the LUE. Status Changes from Prescreening?: No changes Identified Actual Problem List:: Skin Intergrity, Pain, ALteration in Cmfrt, Bowel, Constipation, Mobility Impaired, Self Care Deficit and Alteration-Leisure Activ. Potential Problem List:: DVT, Bleeding, Infection, UTI, Aspiration, Falls, Skin Integrity and Depression Risk of Complications DVT: LMWH and NIC Hose Bleeding: Monitor Lab Values, Nursing to Teach Precautions for anti-coagulation therapy., Wound, if applicable, to be assessed every shift. and Stroke patients assessed for lethargy or change in status. Infection: Clinical Staff to Monitor for S/S of infection: and S/S of infection include fever, redness, warmth, etc. Urinary Tract Infection: Monitor for frequency, burning, discomfort, or incontinence. and Nursing will obtain urine sample for urinalysis and C&S when ordered. Aspiration: Clinical staff will monitor for coughing, drooling, congestion., Speech will evaluate swallowing and dsyphasia. and Nursing will monitor patient swallowing during meals. Falls: Patient will be evaluated for Fall Precautions and Patient will be placed on Fall Precautions as indicated per protocol. Skin Breakdown: Nursing will assess skin daily using assessment tool. and Nursing will place on Skin Breakdown Precautions as indicated. Pain: Clinical staff will assess patient's pain level per protocol., Medications will be given, if needed, and the pain level reassessed. and Other methods: Massage, distraction, decrease stimulus, etc. used PRN. Plan of Care Patient requires physician specializing in physical medicine and rehab oversight to provide close medical supervision of rehab issues including: Pain Management, Sleep Problems, Bowel and Bladder, Medical and co-morbidity Management, DVT prophylaxis, Rehabilitation Leadership and Coordination of treatment team Patient needs Physical Therapy: For a minimum of 1 hour and At least 5 out of 7 days Patient needs Physical Therapy to improve:: Mobility, Strengthening, Transfers, Stretching, ROM, Endurance, Stairs, Gait and Balance Patient needs Occupational Therapy: For a minimum of 1 hour and At least 5 out of 7 days Patient needs Occupational Therapy to improve ADL's incl.: Eating, Grooming, Bathing, Dressing, Toileting, Toilet transfers, Community Reintegration, Higher functioning activities, Household tasks, Adaptive Equipment, Splinting and Other activities as determined Patient requires 24/7 Rehabilitation Nursing for: Pain Issues, Identifying and preventing risk factors, Monitoring and reporting current medical conditions, Assisting with ambulation, transfer, and all ADL's, Teaching patients about disease process and medications, Family teaching, Providing safe environment, Bowel and Bladder Issues, Skin integrity and Medication Management Patient needs Physicist [employer]/ Case Management for: Discharge Planning, Arranging Home Equipment or Services and Family Interventions Patient needs Dietary and Nutrition Services for: Adequate Nutrition, Nutritional Supplements and Nutritional Education Goals Patient will remain: free from falls and or injury at time of discharge. Patient will perform bed mobility at: MOD I level of assist. Patient will complete transfers from bed to chair at: MOD I level of assist. Patient will ambulate: 50 feet (50 ft with a hemicane at TIKA) and with LRD Patient will complete upper body dressing at: MOD I level of assist. (using AE) Patient will complete lower body dressing at: MOD I level of assist. (using AE) Patient will complete toileting at: MOD I level of assist. (with DME/AD) Patient will perform bathing at: MOD I level of assist. Patient will complete grooming at: MOD I level of assist. Patient will complete home management skills at: MOD I level of assist. Patient will achieve: - (1 curb step and 2 steps with a cane and min assist) Patient will have pain level of: of 3 or less Patient's skin will: remain intact Patient will receive: adequate nutrition. Discharge Planning Estimated Length of stay (days): 7 Anticipated D/C Destination: Home with Home Health Was Preadmission Assessment Accurate?: Yes
--- NOTE | 2021-12-21 11:59 | VDLE_ITS ---
Reason For Study: Pain/Swelling RIGHT GSV is normal. CFV is compressible, spontaneous, phasic, competent and demonstrates normal augmentation. FV is compressible, spontaneous, phasic, competent and demonstrates normal augmentation. POP V is compressible, spontaneous, phasic, competent and demonstrates normal augmentation. T/P Trunk is compressible. PTV is compressible. RT PerV is compressible. Procedure This is a venous duplex using B-mode, color flow and spectral Doppler. Exam performed portable in patient room. A preliminary report was called and/or faxed to [facility]. VL/Venous Duplex US, Unilateral Interpretation Summary There is no evidence of right lower extremity deep vein thrombosis. Right great saphenous vein appears patent and compressible segmentally. Ordering Physician: Bessy Cullen Referring Physician: Pavel Nesbitt MD Performed By: Joan Hooker RVT
[2021-12-21] MEDS: Psyllium 1 PACKET PO (15:46)
[2021-12-21] MEDS: Potassium Chloride Oral Tablet 20 MEQ PO (16:42)
[2021-12-21 19:06] VITALS: BP 128/81; PULSE 84; RESP 16; TEMP 36.4; O2SAT 94
[2021-12-22] MEDS: Acetaminophen 500 MG Tablet 1000 MG PO ×3 (06:32→21:34)
[2021-12-22] MEDS: Hydrocortisone 2.5% Crm 1 APPLIC TOPICAL (06:32)
[2021-12-22] MEDS: Menthol/Lanolin/Calamine/Znox 113 GM Tube 1 APPLIC TOPICAL ×2 (06:43→21:34)
[2021-12-22] MEDS: oxyCODONE 5 MG Tablet PO ×2 (06:54→13:42)
[2021-12-22 07:35] VITALS: BP 106/65; PULSE 85; RESP 16; TEMP 36.5; O2SAT 96
[2021-12-22] MEDS: Enoxaparin 40 MG/0.4 ML Syringe SC (08:16)
[2021-12-22] MEDS: Prenatal Vits Tablet 1 TABLET PO (08:16)
[2021-12-22] MEDS: Psyllium 1 PACKET PO (08:16)
[2021-12-22] MEDS: Senna/Docusate Sodium 1 Tablet 2 TABLET PO (08:16)
[2021-12-22] MEDS: Potassium Chloride Oral Tablet 20 MEQ PO (16:13)
[2021-12-22] MEDS: tiZANidine HCl 2 MG Tablet PO (17:59)
[2021-12-22 19:18] VITALS: BP 112/60; PULSE 81; RESP 16; TEMP 36.4; O2SAT 98
[2021-12-22 22:00] VITALS: PULSE 86; RESP 16; O2SAT 95
[2021-12-23] MEDS: Acetaminophen 500 MG Tablet 1000 MG PO ×3 (05:46→21:26)
[2021-12-23 08:04] VITALS: BP 115/82; PULSE 86; RESP 18; TEMP 36.7; O2SAT 97
[2021-12-23] MEDS: Prenatal Vits Tablet 1 TABLET PO (09:23)
[2021-12-23] MEDS: Enoxaparin 40 MG/0.4 ML Syringe SC (09:23)
[2021-12-23] MEDS: Menthol/Lanolin/Calamine/Znox 113 GM Tube 1 APPLIC TOPICAL ×2 (09:26→21:27)
[2021-12-23 19:47] VITALS: BP 114/76; PULSE 89; RESP 16; TEMP 36.6; O2SAT 100
[2021-12-23] MEDS: Senna/Docusate Sodium 1 Tablet 2 TABLET PO (21:26)
--- NOTE | 2021-12-24 04:19 | NURSING ---
Reviewed and agree with WAFER CUTTER documentation and assessment charting.
[2021-12-24] MEDS: Acetaminophen 500 MG Tablet 1000 MG PO ×3 (05:50→22:07)
[2021-12-24 07:37] VITALS: BP 110/70; PULSE 78; RESP 18; TEMP 36.2; O2SAT 98
[2021-12-24] MEDS: Enoxaparin 40 MG/0.4 ML Syringe SC (08:50)
[2021-12-24] MEDS: Prenatal Vits Tablet 1 TABLET PO (08:50)
[2021-12-24] MEDS: Senna/Docusate Sodium 1 Tablet 2 TABLET PO ×2 (08:53→22:07)
[2021-12-24] MEDS: Menthol/Lanolin/Calamine/Znox 113 GM Tube 1 APPLIC TOPICAL (08:53)
--- NOTE | 2021-12-24 11:37 | PCM.PN.BLA ---
Progress Note Beckie was seen on TEAM rounds today. Her David participated by phone. All questions were answered to their satisfaction. Afebrile VSS Maintaining appropriate oxygen saturation on RA Oral intake is good Discussed with nursing - no problems that need addressed Reviewed the PT/OT/ST notes Medication list reviewed. Has not been taking any Oxycodone since the and she has had only 1 Zanaflex and that was on the . I observed her in the hallway this morning in a WC and she was able to maneuver it well. She states her pain is well controlled. She is sleeping well. she is able to hop 20' with a HW. Denies SOB, CP, N/V/abd pain. The pain in the L wrist yesterday is better but she has irritation over the L lateral hand where the cast rubs. There is no opening in the skin. No discoloration. Physical Exam Const alert, oriented x3 and no apparent distress General Appearance: cooperative and comfortable HEENT moist oral mucous membranes and oropharynx normal Resp clear to auscultation bilaterally Effort and Inspection: able to speak in complete sentences Cardio regular rate and regular rhythm GI normal to inspection, nondistended, normoactive bowel sounds, soft to palpation and non-tender Extremity no pedal edema Extremity Narrative: She has some discomfort behind the R knee but, this is getting better and the venous US was negative a few days ago. Skin Skin Narrative: pruritus has resolved General Skin Exam: no breakdown Rashes: no rashes Neuro Neuro Narrative: intact sensation in all extremities Psych mental status grossly normal, thought process normal, cooperative and affect normal Assessment & Plan Assessment/Plan (1) Physical debility: (2) Fracture of head of left radius: (3) History of arthroplasty: (4) Ligament tear of upper extremity: (5) Tibial plateau fracture, right: (6) Status post open reduction with internal fixation of fracture: (7) Normochromic normocytic anemia: (8) Hypokalemia: (9) Other acute postprocedural pain: PLAN: 1. recheck K in the AM 2. Continue PT/OT. David is coming in tomorrow for family training. If all goes well Beckie would like to be discharged home on Tuesday. There is a ramp being built so that she can safely enter her house. David will bring his FMLA papers in tomorrow for me to complete so he can be home to care for Beckie and there 2 little ones. 3. Will try a duoderm on the L lateral hand/wrist to cut down on the friction/rubbing of the splint on the LUE. Visit Charges Inpatient E&M: 11763 Subs Hosp L2
--- NOTE | 2021-12-24 13:10 | CASEMGMT ---
Social Work IDT met with patient and via conference call for Team meeting. Discussed patient's progress in PT/OT and nursing. Pt progressing well. completing therapy training 12/25. Pt already ordered multiple pieces of DME for home. Pt requesting 24 inch w/c w/elevating leg rests and hemiwalker. IDT and pt agreed for pt to complete HEP until f/u appt with ortho then have HHC or OP therapy. Provided lists of those resources with Medicare data. Pt inquired about if returning home does not go well how to get admitted to SNF. Explained getting admitted directly to prison within 30 days, contacting PCP and getting admitted to the community. Explained precert process to get authorization prior to being admitted and insurance can deny stay. Pt expressed understanding. Referral made to [facility] for DME. No therapy needs. to transport home. Plan: DC home with and children 12/27, w/c and hemiwalker Angela Mcdaniel, KARSON WEBERW
[2021-12-24 20:00] VITALS: BP 116/68; PULSE 90; RESP 14; TEMP 36.7; O2SAT 98
[2021-12-25] MEDS: Acetaminophen 500 MG Tablet 1000 MG PO ×3 (06:46→22:30)
[2021-12-25 07:48] VITALS: BP 122/68; PULSE 85; RESP 18; TEMP 36.4; O2SAT 97
[2021-12-25] MEDS: Prenatal Vits Tablet 1 TABLET PO (08:01)
[2021-12-25] MEDS: Enoxaparin 40 MG/0.4 ML Syringe SC (08:01)
[2021-12-25] MEDS: Menthol/Lanolin/Calamine/Znox 113 GM Tube 1 APPLIC TOPICAL (08:01)
--- NOTE | 2021-12-25 11:23 | PN_ITS ---
Subjective Subjective Afebrile VSS Maintaining appropriate oxygen saturation on RA Oral intake is good Discussed with nursing - no problems that need addressed Reviewed the PT/OT notes Medication list reviewed. Potassium is normal now following [place] were removed today and the incision is intact with no dehiscence. There is no erythema and no purulent DC. Steri strips are in place. There is a co-pay for the Xarelto but, it is on formulary and Beckie and her discussed this and they would rather do the Xarelto and not the Lovenox. She is sleeping well and the pain is controlled. She has no complaints. Denies SOB, chest pain, palpitations, lightheadedness. No chills, no cough and no sore throat. Objective Data Objective Data Vital Signs: Vital Signs Temp Pulse Resp BP Pulse Ox 97.5 F L 85 18 122/68 H 97 12/25/21 07:48 12/25/21 07:48 12/25/21 07:48 12/25/21 07:48 12/25/21 07:48 Oxygen Delivery Method Room Air Weight: 214 lb 11.684 oz Body Mass Index (BMI) 34.8 Intake & Output: Intake and Output for Last 24 Hours 12/23/21 12/24/21 12/25/21 23:59 23:59 23:59 Intake Total 660 / 660 240 / 240 Balance 660 / 660 240 / 240 Lab / Micro Data Result Diagrams: 12/20/21 07:08 12/25/21 05:37 Labs: Laboratory Results - last 24 hr 12/25/21 05:37: Potassium 4.0 Physical Exam Const alert and oriented x3 General Appearance: cooperative Neck supple Lymph Lymphatic: no lymphadenopathy noted Resp normal respiratory effort and clear to auscultation bilaterally Cardio regular rate and regular rhythm GI normal to inspection, nondistended, normoactive bowel sounds, soft to palpation and non-tender Extremity normal capillary refill Extremity Narrative: Some edema of the R leg distal to the knee. No fluid wave in the knee joint. Patella is not ballotable. General Extremity: edema right; Negative for clubbing or cyanosis Skin General Skin Exam: no breakdown and turgor normal Rashes: no rashes Psych thought process normal, cooperative and affect normal Appearance: appropriate Assessment & Plan Assessment/Plan (1) Status post open reduction with internal fixation of fracture: (2) Fracture of head of left radius: (3) Ligament tear of upper extremity: (4) History of arthroplasty: (5) Tibial plateau fracture, right: (6) Hypokalemia: PLAN: 1. David is coming in this afternoon for family training. If all goes well she will go home on 12/27/21. Rx sent to [facility] retail pharm for Xarelto. She would like her other RX's sent there as well. 2. [facility] has not called yet and they do not deliver on weekends so the is going to place another phone call to them. 3. Continue therapy today and tomorrow. She will receive exercises to do at home from the therapists and then when she is allowed to bear weight again she will start PT/OT again. Charges/Coding Visit Charges Inpatient E&M: 42570 Subs Hosp L1
--- NOTE | 2021-12-25 14:40 | PCM.DC ---
Discharge Instructions Diet Discharge Diet: No restrictions Activity Discharge Activity: May Not Drive, May Not Shower ( Sponge bath for now unless able to cover the LUE with a plastic back and keep it from getting wet. ) and Use Walker Ice area for (Minutes): 10 Weight Bearing Status: No weight bearing (on the RLE and the LUE until okayed by Dr. Masterson) Lifting Restrictions: no lifting Keep extremity elevated above heart level: Left Arm and Right Leg Additional Activity Instructions:: Do the exercises given to you by the therapists at least once a day to maintain strength in the muscles of the L arm and the R leg. Will need PT/OT either at home or as an OP once she is allowed to bear weight again. Dressing / Incision Call your doctor if your incision/area has: Continuous Slow Oozing, Sudden Increased Bleeding, Increased Pain/ Swelling, Increased Redness, Foul Smelling Discharge and Swelling at the incision site Call your doctor if you observe: Fever of 101 or Higher, Numbness or Tingling, Shortness of breath, Chest pain, Increased palpitations (irregular heartbeat), Calf discomfort and Uncontrolled pain Suture Line Care: Avoid Pulling/Pushing and Avoid Pinching/Bending Cleanse incision/area with: Soap & Water Additional Dressing/Incision Instructions:: The incision on the R leg may be left open to air BUT, with 2 small children walking/crawling around and wanting to be close to their mom you may want to cover it when the kids are around to protect the wound from accidentally being bumped and causing the incision to break open. Follow Up Care Please Follow Up With: Dr. Masterson When: as arranged Test Results: Test results from this visit will be discussed in further detail at your follow-up appointment, if applicable. Pending Tests Upon Discharge: none Discharge Plan Admission Admit Date/Time: 12/19/21 20:15 Primary Reason for Your Visit: Debility due to trauma with R tibial plateau fx and Left radial head fx. Attending Provider: Bessy Cullen Primary Care Provider: Devante Nesbitt Instructions Patient Instructions: Caring for Your Incision Additional Instructions / Restrictions: 1. You should do the exercises given to you by the therapists at least once a day to maintain your strength so when Dr. Masterson releases you to bear weight your muscles won't be so weak and atrophied.......then the real therapy starts to get you back to your baseline. 2. It has been a pleasure meeting you. We have ALL enjoyed having you around and you have a great attitude. If you or David have any questions after you leave please do not hesitate to call me. office: [phone] or [phone] CELL: [phone] Remember to pad that leg incision to protect it. Discharge Orders/Prescriptions Prescriptions: New rivaroxaban 10 mg tablet 10 mg PO DAILY Qty: 12 RF: 0 sennosides-docusate sodium [Stool Softener-Stimulant Laxat] 8.6-50 mg Tablet 2 tab PO BID Qty: 56 RF: 0 tizanidine 2 mg Tablet 2 mg PO Q8H PRN PRN (Reason: calf pain/muscle spasm) Qty: 30 RF: 0 Continued Tylenol 1,000 mg Q8 RF: 0 Gummies DAILY RF: 0 oxycodone 5 mg Tablet 5 mg PO Q4H PRN (Reason: Pain) 7 Days Qty: 30 RF: 0 Discontinued Lovenox 40 mg/0.4 ml DAILY RF: 0 Referrals / Follow Up: Dr Etienne [Other] - 12/31/21 10:15 am Devante Nesbitt MD [Primary Care Provider] - (call to schedule F/U appt 1-2 weeks) Disposition Disposition (needs filled in before D/C Order can be placed): Home, Self Care
--- NOTE | 2021-12-25 15:32 | DS.PCM_ITS ---
Providers Date of Admission: 12/19/21 Date of Discharge: 12/27/21 Primary Care Physician: Dr. Devante Nesbitt MD Reason For Visit: R TIB/ FIB FX/ R HUMERUS FX Diagnosis Discharge Diagnosis (1) Status post open reduction with internal fixation of fracture: Status: Acute Code(s): Z98.890 - Other specified postprocedural states; Z87.81 - Personal history of (healed) traumatic fracture (2) Fracture of head of left radius: Status: Acute Code(s): S52.122A - Displaced fracture of head of left radius, initial encounter for closed fracture (3) Ligament tear of upper extremity: Status: Acute (4) History of arthroplasty: Status: Acute Code(s): Z98.890 - Other specified postprocedural states (5) Tibial plateau fracture, right: Status: Acute Code(s): S82.141A - Displaced bicondylar fracture of right tibia, initial encounter for closed fracture (6) Hypokalemia: Status: Resolved Code(s): E87.6 - Hypokalemia Plan: 1. DC home. Has follow up with Dr. Masterson on 12/31/21 scheduled. 2. Exercises given by the therapists to do at least once daily. When she is released to weight bear she will need [facility] for PT/OT or OP therapy. 3. Follow up with Dr. Nesbitt in 7-10 days. Medications at Discharge Home Medications Gummies DAILY 12/19/21 Tylenol Q8 12/19/21 rivaroxaban 10 mg PO DAILY #12 tab 12/24/21 oxycodone 5 mg PO Q4H PRN 7 Days #30 tab 12/25/21 sennosides-docusate sodium [Stool Softener-Stimulant Laxat] 2 tab PO BID #56 tab 12/25/21 tizanidine 2 mg PO Q8H PRN PRN #30 tab 12/25/21 Hospital Course Operations - (Left radial head arthroplasty and repair of a torn ligament in L elbow and ORIF for a R tibial plateau fracture by Dr. Masterson. ) Procedures None Summary of Care Provided Minutes Spent on Discharge: 35 Hospital Course: HILARIO LOCKHART is a 31 YO F who tripped and fell while at the playground with her children and her . She was taken to [facility] and was diagnosed with a R medial tibial plateau fx and L elbow fracture/dis location and torn ligament. She underwent surgery by Dr. Masterson and PT/OT was ordered. Since she will be NWB on the RLE for 8-10 weeks and NWB on the LUE for 4-6 weeks acute rehab was recommended. She was transferred to the acute inpt rehab unit at [facility] on 12/19/21 for 3 hours of therapy daily to improve function to allow her to maneuver in her house safely. Her can be home but, they h ave a 2 YO and a 6 month old and he will have his hands full. There are many family members in the area that can pitch in and help. Beckie has been on BCP's and due to her immobility and increased risk for DVT the BCP's were discontinued and she was told not to resume BCP's until she can bear weight on the RLE and is able to ambulate. She was on Lovenox at presentation to rehab which Dr. Masterson wanted for 21 days post-op but, she hates shots and neither she nor her wanted to give Lovenox shots at [place] so she was transitioned to Xarelto 10 mg daily to complete 21 days. Potassium was low at admission to rehab and supplementation was ordered. A recheck of potassium prior to DC showed it to be WNL. HGB is a tad low at 11.3 which likely due to blood loss at the time of surgery. The MCV is normal. On PE at admission she c/o pain behind the R knee and she had swelling in the R calf and ankle. The R leg was warmer than the left. A venous US was ordered and it was negative for DVT. Beckie did well in therapy and progressed rapidly. Prior to DC family was brought in for family training to learn how best to assist her. She was able to hop 20' with a niesha-walker and she was able to maneuver the WC quite well prior to DC. She was discharged home on 12/27/21. She was given exercises to do by the therapists but, will likely needed PT/OT when she is released by Dr. Masterson to bear weight on the left arm and the R leg. She has an appt with Dr. Masterson on 12/31/21 and she will also follow up with Dr. Nesbitt in the next 1-2 weeks. Physical Exam Const alert, oriented x3, no apparent distress and well nourished General Appearance: cooperative and well developed HEENT normocephalic and head/scalp atraumatic Eyes PERRL and EOMs intact bilaterally Resp normal respiratory effort, normal air movement, no retractions, no use of accessory muscles and clear to auscultation bilaterally Resp Narrative: no tachypnea, no cough and no complaints of SOB. Effort and Inspection: able to speak in complete sentences Cardio regular rate, regular rhythm, S1 normal heart sound, S2 normal heart sound, no murmurs, no rub and no gallops Cardio Narrative: no ectopy GI normal to inspection, nondistended, normoactive bowel sounds, soft to palpation and non-tender GI Narrative: No guarding with palpation. BM's are regular. Extremity no calf tenderness Extremity Narrative: mild edema in the ankle of the RLE.......improves with elevation. Skin no jaundice General Skin Exam: no breakdown Rashes: no rashes Wound Narrative: Poncho were removed by nursing on 12/25/21 and Steri strips were applied. The incision is intact with no dehiscence. There is no purulent DC and no erythema. Neuro oriented x3, CN's II-XII intact bilaterally, moves all extremities, no focal motor deficits and no sensory deficits noted Psych mental status grossly normal, thought process normal, cooperative, affect normal and speech normal Attitude: calm Activity / Motor Behavior: appropriate eye contact Weight / BMI Weight Weight: 214 lb 11.684 oz Body Mass Index (BMI) 34.8 ABG / Lab / Microbiology Data Result Diagrams: 12/20/21 07:08 12/25/21 05:37 Laboratory: Laboratory Results - last 24 hr 12/25/21 05:37: Potassium 4.0 D/C Instructions Discharge Diet: No restrictions Ice area for (Minutes): 10 Weight Bearing Status: No weight bearing (on the RLE and the LUE until okayed by Dr. Masterson) Keep extremity elevated above heart level: Left Arm and Right Leg Additional Activity Instructions: Do the exercises given to you by the therapists at least once a day to maintain strength in the muscles of the L arm and the R leg. Will need PT/OT either at home or as an OP once she is allowed to bear weight again. Call your doctor if your incision/area has: Continuous Slow Oozing, Sudden Increased Bleeding, Increased Pain/ Swelling, Increased Redness, Foul Smelling Discharge and Swelling at the incision site Call your doctor if you observe: Fever of 101 or Higher, Numbness or Tingling, Shortness of breath, Chest pain, Increased palpitations (irregular heartbeat), Calf discomfort and Uncontrolled pain Suture Line Care: Avoid Pulling/Pushing and Avoid Pinching/Bending Cleanse incision/area with: Soap & Water Additional Dressing/Incision Instructions: The incision on the R leg may be left open to air BUT, with 2 small children walking/crawling around and wanting to be close to their mom you may want to cover it when the kids are around to protect the wound from accidentally being bumped and causing the incision to break open. Pending Tests Upon Discharge: none Please Follow Up With: Dr. Masterson When: as arranged Meaningful Use Info Meaningful Use Diagnoses (Choose all that apply): None applicable Discharge Plan Admission Admit Date/Time: 12/19/21 20:15 Primary Reason for Your Visit: Debility due to trauma with R tibial plateau fx and Left radial head fx. Attending Provider: Bessy Cullen Primary Care Provider: Devante Nesbitt Instructions Patient Instructions: Caring for Your Incision Additional Instructions / Restrictions: 1. You should do the exercises given to you by the therapists at least once a day to maintain your strength so when Dr. Masterson releases you to bear weight your muscles won't be so weak and atrophied.......then the real therapy starts to get you back to your baseline. 2. It has been a pleasure meeting you. We have ALL enjoyed having you around and you have a great attitude. If you or David have any questions after you leave please do not hesitate to call me. office: [phone] or [phone] CELL: [phone] Remember to pad that leg incision to protect it. Discharge Orders/Prescriptions Prescriptions: New rivaroxaban 10 mg tablet 10 mg PO DAILY Qty: 12 RF: 0 sennosides-docusate sodium [Stool Softener-Stimulant Laxat] 8.6-50 mg Tablet 2 tab PO BID Qty: 56 RF: 0 tizanidine 2 mg Tablet 2 mg PO Q8H PRN PRN (Reason: calf pain/muscle spasm) Qty: 30 RF: 0 Continued Tylenol 1,000 mg Q8 RF: 0 Gummies DAILY RF: 0 oxycodone 5 mg Tablet 5 mg PO Q4H PRN (Reason: Pain) 7 Days Qty: 30 RF: 0 Discontinued Lovenox 40 mg/0.4 ml DAILY RF: 0 Referrals / Follow Up: Dr Etienne [Other] - 12/31/21 10:15 am Devante Nesbitt MD [Primary Care Provider] - (call to schedule F/U appt 1-2 weeks) Disposition Disposition (needs filled in before D/C Order can be placed): Home, Self Care Charges/Coding Visit Charges Inpatient E&M: 16341 Disch Hosp
[2021-12-25 19:25] VITALS: BP 113/93; PULSE 68; RESP 16; TEMP 36.6; O2SAT 99
[2021-12-26] MEDS: Acetaminophen 500 MG Tablet 1000 MG PO ×3 (06:20→22:43)
[2021-12-26 08:00] VITALS: BP 140/70; PULSE 70; RESP 17; TEMP 36.2; O2SAT 97
[2021-12-26] MEDS: Enoxaparin 40 MG/0.4 ML Syringe SC (10:08)
[2021-12-26] MEDS: Prenatal Vits Tablet 1 TABLET PO (10:09)
--- NOTE | 2021-12-26 13:30 | NURSING ---
Patient discharging tomorrow. Patient concerned that wheel chair has not arrived from [facility]. This nurse called and talked to Carlos, he states that company will have it here tonight or tomorrow by noon because patient will be discharing between noon and 1300. Patient informed.
--- NOTE | 2021-12-26 22:45 | NURSING ---
Pt informs this nurse she does not wish to be work up for medications scheduled at 0600 or for personal care. Verbalizes she will call staff upon awakening for am dose of Tylenol. Plans to shower at home tomorrow.
[2021-12-27] MEDS: Acetaminophen 500 MG Tablet 1000 MG PO (06:58)
[2021-12-27] MEDS: Enoxaparin 40 MG/0.4 ML Syringe SC (07:54)
[2021-12-27] MEDS: Prenatal Vits Tablet 1 TABLET PO (07:55)
[2021-12-27 08:00] VITALS: BP 109/69; PULSE 86; RESP 16; TEMP 36.7; O2SAT 95
[2021-12-27 12:45] VITALS: BP 109/69; PULSE 86; RESP 16; TEMP 36.7; O2SAT 95
--- NOTE | 2021-12-27 12:45 | NURSING ---
Patient and spouse verbalized understanding to dc instruct and discharged at this time. [employer] delivered w/c with no elevating foot rest and it is a 22 in not a 20 inch per patient. Patient reported she will call them to let them know.
== END 2021-12-27 12:45 | disposition home or self-care (01) | DRG 561 ==
PROVIDERS: Admitting Provider Internal Medicine; PCP Family Medicine; Visit Provider Internal Medicine
DX: S82.141D Displaced bicondylar fracture of right tibia, subsequent encounter for closed fracture with routine healing (principal); D64.9 Anemia, unspecified; E87.6 Hypokalemia; W19.XXXD Unspecified fall, subsequent encounter; E66.09 Other obesity due to excess calories; Z79.01 Long term (current) use of anticoagulants; Z68.34 Body mass index [BMI] 34.0-34.9, adult; S42.402D Unspecified fracture of lower end of left humerus, subsequent encounter for fracture with routine healing; S82.831D Other fracture of upper and lower end of right fibula, subsequent encounter for closed fracture with routine healing
CPT/HCPCS: 36415; 80053; 81001; 83735; 84100; 84132; 85027; 93971; 97110; 97116; 97161; 97165; 97530; 97535; 97542; 97802; 99251; G0463

== ENCOUNTER → 2022-03-15 | Outpatient (CLI) | payer OTHER, SELFPAY | END | disposition home or self-care (01) | LOC: LABSPEC 16:57 | PROVIDERS: PCP Family Medicine; Visit Provider Family Medicine | DX: U07.1 COVID-19 (principal) | CPT/HCPCS: 87635; U0003; U0005 ==

== ENCOUNTER → 2022-10-06 | Outpatient (CLI) | payer OTHER, SELFPAY ==
[2022-10-06 12:32] LABS: Hematocrit 40.9 % (37-47); Hemoglobin 13.5 g/dL (12.0-15.0); Mean Corpuscular Hgb 30.3 pg (27.0-32.0); Mean Corpuscular Volume 91.9 fL (81-99); Mean Platelet Vol. 10.5 fl (6.2-12.0); Platelet Count 238 K/mm3 (150-450); RBC Distribution Width SD 43.5 fl (35.1-43.9); Red Blood Count 4.45 M/mm3 (4.2-5.4); White Blood Count 3.9 K/mm3 (4.4-11.0)
[2022-10-06 12:54] LABS: Amylase 48 U/L (25-115); Lipase 81 U/L (73-393)
[2022-10-08 08:29] LABS: H. PYLORI STOOL AG Negative (Negative)
== END | disposition home or self-care (01) ==
PROVIDERS: PCP Family Medicine; Referring Provider Nurse Practitioner Family; Visit Provider Nurse Practitioner Family
DX: R19.7 Diarrhea, unspecified (principal)
CPT/HCPCS: 36415; 82150; 83690; 85027; 87177; 87209; 87338; 87493; 87506

== ENCOUNTER → 2023-05-10 | Outpatient (CLI) | payer OTHER, SELFPAY ==
[2023-05-10 17:53] LABS: Absolute Lymphocyte Count 0.94 X10^3/uL (0.83-4.51); Absolute Neutrophil Count 6.6 X10^3/uL (2.0-7.7); Basophil# 0.02 X10^3/uL; Basophil% 0.2 % (0-1); Eosinophil# 0.18 X10^3/uL; Eosinophils% 2.2 % (0-5); Hematocrit 46.1 % (37-47); Hemoglobin 14.7 g/dL (12.0-15.0); Lymphocyte # 0.94 X10^3/ul (0.83-4.51); Lymphocyte % 11.3 % (19-41); Mean Corp Hgb Conc 31.9 g/dL (32-36); Mean Corpuscular Hgb 29.2 pg (27.0-32.0); Mean Corpuscular Volume 91.5 fL (81-99); Mean Platelet Vol. 10.5 fl (6.2-12.0); Monocyte# 0.54 X10^3/uL; Monocyte% 6.5 % (0-10); NRBC Flagged by Analyzer 0 % (0-5); Neutrophil # 6.62 X10^3/uL (2.7-7.7); Neutrophil % 79.6 % (47-70); Platelet Count 230 K/mm3 (150-450); RBC Distribution Width CV 13.1 % (11.6-14.6); RBC Distribution Width SD 43.6 fl (35.1-43.9); Red Blood Count 5.04 M/mm3 (4.2-5.4); White Blood Count 8.3 K/mm3 (4.4-11.0)
[2023-05-10 18:19] LABS: ALB/GLOB Ratio 0.7 RATIO (0.9-2.4); AST(SGOT) 16 U/L (15-37); Alanine Aminotransfer ALT/SGPT 30 U/L (13-56); Albumin, Serum 3.5 g/dL (3.2-5.0); Alkaline Phosphatase 78 U/L (45-117); Anion Gap 10 (5-15); BUN 16 mg/dL (7-18); BUN/Creat Ratio 20.3 RATIO (10-20); Calcium,Total 9.4 mg/dL (8.5-10.1); Chloride 103 mmol/L (98-107); Creatinine, Serum 0.79 mg/dL (0.55-1.02); EST Glomerular Filtration Rate 90 mL/min (>60); Est Glom Filt Rate - Afr Amer 109 mL/min (>60); Globulin 4.7 g/dL (2.2-4.2); Glucose 84 mg/dL (74-106); Potassium 4.1 mmol/L (3.5-5.1); Protein, Total 8.2 g/dL (6.4-8.2); Sodium Level 136 mmol/L (136-145)
[2023-05-10 18:38] LABS: Internal QC Validated? YES +Cl - CLEAR BKGD; Monotest Negative (Negative); Record Kit Lot#, Mono 13231163
== END | disposition home or self-care (01) ==
PROVIDERS: PCP Family Medicine; Visit Provider Family Medicine
DX: J06.9 Acute upper respiratory infection, unspecified (principal)
CPT/HCPCS: 36415; 80053; 85025; 86308; 87070; 87077

== ENCOUNTER → 2024-05-17 | Outpatient (CLI) | payer OTHER, SELFPAY ==
--- NOTE | 2024-05-17 16:30 | RAD_ITS ---
STUDY: X-RAY - LEFT KNEE REASON FOR EXAM: Female, 34 years old. ? subluxation TECHNIQUE: 4 view(s) of the knee. COMPARISON: None. FINDINGS: Normal visualized distal femur. Normal visualized proximal tibia and fibula. Normal proximal tibiofibular articulation. Normal medial femorotibial compartment. Normal lateral femorotibial compartment. Normal patellofemoral articulation. The soft tissue structures are unremarkable. RAD/Knee 4 or More Views IMPRESSION: Normal x-ray examination of the knee. Electronically Signed: Hitesh May MD at 19:55 EDT ,
== END | disposition home or self-care (01) ==
PROVIDERS: PCP Family Medicine; Referring Provider Family Medicine; Visit Provider Family Medicine
DX: S83.002A Unspecified subluxation of left patella, initial encounter (principal)
CPT/HCPCS: 73564